=== PATIENT | male | born 1945 | race Caucasian/White ===

== ENCOUNTER 2018-04-16 21:49 | Inpatient (IN) | payer MEDICARE ==
[2018-04-16 21:51] VITALS: BMI 25.3
[2018-04-16] MEDS ORDERED: NAPROXEN PO PRN (22:54)
[2018-04-16] MEDS ORDERED: Glucagon Recombinant 1 mg Inj IM PRN (22:58)
[2018-04-16] MEDS ORDERED: Dextrose 50% SYRINGE Inj (50 ml) IV PRN (22:58)
[2018-04-16] MEDS ORDERED: Oxycodone/Acetaminophen 5/325 mg Tab PO PRN (23:01)
--- NOTE | 2018-04-16 23:03 | CP.PCM.HP ---
History of Present Illness - History of Present Illness History of Present Illness: CC: s/p admission at [facility] for new onset A fib/thyrotoxicosis; here for rehab HPI: This is a 72 y/o male with MHx significant for HTN and DM2 who was admitted to [facility] for thyrotoxicosis with new onset A fib and initially hypotension, then severe hypertension. His course was complicated, requiring a stay in ICU for mgmt. of the thyroid storm as well as severely elevated BP. He was found to be in A fib, likely 2/2 the thyroid storm and was started on anticoagulation. Patient event was transferred back to [facility] after 24 hours in ICU and further course had been uneventful. He has been stable and has problems have all been brought under control, but patient was noted to be fairly debilitated, and is being sent to TCU for further mgmt and initiation of rehab. ROS: 14 systems reviewed, negative other than HPI MHx: Hyperthyroid, A fib, DM2, HTN SHx: Allergies: Celecoxib Medications: None Family Hx: No relevant findigns Social Hx: Lives at home, no tobacco, no EtOH Surrogate Dec. Mkr.: , Shayna Present on Admission - Present on Admission Any Indicators Present on Admission: No Past Patient History - Tetanus Immunizations Tetanus Immunization: Unknown - Past Medical History & Family History Past Medical History?: Yes - Past Social History Smoking Status: Former Smoker Chewing Tobacco Use: No - CARDIAC Hx Hypercholesterolemia: Yes Hx Hypertension: Yes - PULMONARY Hx Respiratory Disorders: Yes Hx Asthma: No Hx Bronchitis: Yes Hx Chronic Obstructive Pulmonary Disease (COPD): Yes Hx Emphysema: Yes Hx Lung Cancer: No Hx Pneumonia: No Hx Pulmonary Edema: No Hx Pulmonary Embolism: No Hx Respiratory Aspiration: No Hx Respiratory Tract Infection: Yes Hx Sleep Apnea: Yes Hx Tuberculosis: No Other/Comment: quit smoking 30 years ago - NEUROLOGICAL Hx Neurological Disorder: Yes Hx Dizziness: Yes Hx Vertigo: Yes Other/Comment: lower extremity stiffness/weakness - HEENT Hx HEENT Problems: Yes Hx Cataracts: Yes (RIGHT EYE) - RENAL Hx Chronic Kidney Disease: Yes Hx Kidney Stones: Yes - ENDOCRINE/METABOLIC Hx Diabetes Mellitus Type 2: Yes - HEMATOLOGICAL/ONCOLOGICAL Hx Blood Disorders: No - INTEGUMENTARY Hx Dermatological Problems: No - MUSCULOSKELETAL/RHEUMATOLOGICAL Hx Arthritis: Yes - GASTROINTESTINAL Hx Gastrointestinal Disorders: No - GENITOURINARY/GYNECOLOGICAL Hx Genitourinary Disorders: No - PSYCHIATRIC Hx Psychophysiologic Disorder: No Hx Substance Use: No - SURGICAL HISTORY Hx Surgeries: Yes Hx Coronary Stent: Yes - ANESTHESIA Hx Anesthesia: Yes Hx Anesthesia Reactions: No Hx Malignant Hyperthermia: No Meds Allergies/Adverse Reactions: Allergies Allergy/AdvReac Type Severity Reaction Status Date / Time celecoxib [From Celebrex] Allergy RASH Verified 04/16/18 21:51 Physical Exam - Constitutional Appears: No Acute Distress - Head Exam Head Exam: ATRAUMATIC, NORMOCEPHALIC - Eye Exam Eye Exam: EOMI, PERRL - ENT Exam ENT Exam: Mucous Membranes Moist - Neck Exam Additional comments: Limited ROM 2/2 pain - Respiratory Exam Respiratory Exam: Clear to Auscultation Bilateral, NORMAL BREATHING PATTERN - Cardiovascular Exam Cardiovascular Exam: Irregular Rhythm, +S1, +S2 - GI/Abdominal Exam GI & Abdominal Exam: Normal Bowel Sounds, Soft - Extremities Exam Extremities exam: Positive for: normal inspection - Neurological Exam Neurological exam: Alert, CN II-XII Intact, Oriented x3 - Psychiatric Exam Psychiatric exam: Normal Affect, Normal Mood - Skin Skin Exam: Dry, Warm Results - Labs Result Diagrams: 04/16/18 23:42 04/16/18 23:42 Assessment & Plan (1) New onset atrial fibrillation Assessment and Plan: 72 y/o male who was admitted to [facility] for thyrotoxicosis and new onset A fib. Also noted to have elevated transaminases. 1) Hyperthyroidism -Cont methimazole -Cont propranolol 2) A fib (new onset) -- likely 2/2 hyperthyroid -Cont Eliquis -Cont propranolol 3) DM2 -Cont LA insulin -SSI -Accucheck achs -DM2 diet 4) HTN -Cont BP meds as per [facility] regimen -May need to uptitrate some BP medications 5) Weakness -PT/OT eval 6) Elevated transaminases -- unclear etiology, believed to be because of Abx per discharge summary -repeat CMP in 1 -2 days -Hold statin until transaminases normalize 7) DVT PPx -- on eliquis Status: Resolved Priority: High Onset Date: ~04/09/18 (2) Hyperthyroidism Status: Acute Priority: High Onset Date: ~04/09/18 (3) Diabetes mellitus Status: Chronic Priority: Medium (4) Weakness Status: Acute Priority: High Onset Date: ~03/13/18 (5) Hypertension Status: Chronic Priority: Medium Onset Date: ~04/09/18 (6) DVT prophylaxis Status: Acute
[2018-04-16] MEDS: Insulin Detemir 100 Units/ml Inj SC SCH (23:47)
[2018-04-16 23:50] LABS: HEMOGLOBIN 11.4 g/dL (12.0-18.0); MEAN CELL VOLUME 94.2 fl (80.0-94.0); MEAN CORPUSCULAR HEMOGLOBIN 31.7 pg (27.0-31.0); MEAN CORPUSCULAR HGB CONC 33.7 g/dL (33.0-37.0); RBC 3.59 Mil/uL (4.40-5.90); RED CELL DISTRIBUTION WIDTH 13.2 % (11.5-14.5); WHITE BLOOD COUNT 10.6 K/uL (4.8-10.8)
[2018-04-16 23:55] LABS: INR 1.1 (0.9-1.2); PARTIAL THROMBOPLASTIN TIME 40.5 Seconds (25.6-37.1); PROTHROMBIN TIME 11.8 Seconds (9.8-13.1)
[2018-04-16 23:57] LABS: BLOOD UREA NITROGEN 30 mg/dl (9-20); CALCIUM 8.8 mg/dL (8.4-10.2); GFR AFRICAN-AMERICAN > 60; GFR NON-AFRICAN AMERICAN > 60
[2018-04-17 01:26] VITALS: RESP 20
[2018-04-17] MEDS: Insulin Lispro (humaLOG) 100 Units/ml Inj SC SCH ×3 (07:18→17:02)
[2018-04-17] MEDS: Multivitamin With Minerals Tab PO SCH (09:40)
[2018-04-17] MEDS: Insulin Detemir 100 Units/ml Inj SC SCH (21:55)
[2018-04-18] MEDS: Insulin Lispro (humaLOG) 100 Units/ml Inj SC SCH ×4 (00:05→16:15)
[2018-04-18 06:53] LABS: ALB/GLOB RATIO 1.3 (1.0-2.1); ALBUMIN 3.9 g/dL (3.5-5.0); ALT/SGPT 133 U/L (21-72); AST/SGOT 68 U/L (17-59); BLOOD UREA NITROGEN 20 mg/dl (9-20); CALCIUM 9.3 mg/dL (8.4-10.2); GFR AFRICAN-AMERICAN > 60; GFR NON-AFRICAN AMERICAN > 60
[2018-04-18] MEDS: Multivitamin With Minerals Tab PO SCH (08:54)
[2018-04-18] MEDS: Insulin Detemir 100 Units/ml Inj SC SCH (21:29)
[2018-04-19] MEDS: Insulin Lispro (humaLOG) 100 Units/ml Inj SC SCH ×5 (00:29→22:55)
[2018-04-19] MEDS: Multivitamin With Minerals Tab PO SCH (08:09)
[2018-04-19] MEDS: Insulin Detemir 100 Units/ml Inj SC SCH (21:44)
[2018-04-20] MEDS: Insulin Lispro (humaLOG) 100 Units/ml Inj SC SCH ×4 (07:00→21:04)
[2018-04-20] MEDS: Multivitamin With Minerals Tab PO SCH (08:42)
[2018-04-20] MEDS: Insulin Detemir 100 Units/ml Inj SC SCH (21:03)
[2018-04-21] MEDS: Insulin Lispro (humaLOG) 100 Units/ml Inj SC SCH ×4 (06:39→21:14)
[2018-04-21] MEDS: Multivitamin With Minerals Tab PO SCH (09:16)
[2018-04-21] MEDS: Insulin Detemir 100 Units/ml Inj SC SCH (21:14)
[2018-04-22] MEDS: Insulin Lispro (humaLOG) 100 Units/ml Inj SC SCH ×2 (06:38→12:01)
[2018-04-22 07:56] VITALS: TEMP 97.8; O2SAT 98
[2018-04-22] MEDS: Multivitamin With Minerals Tab PO SCH (08:53)
[2018-04-22 09:13] VITALS: BP 156/77; PULSE 76
== END 2018-04-22 14:00 | disposition home or self-care (01) | DRG 308 ==
LOC: H.TCU 21:52
PROVIDERS: ADMIT Internal Medicine; ATTEND Internal Medicine
PROC: F07Z9FZ Gait Training/Functional Ambulation Treatment using Assistive, Adaptive, Supportive or Protective Equipment (ICD-10-PCS; principal; 2018-04-16)
PROC: F07M6FZ Therapeutic Exercise Treatment of Musculoskeletal System - Whole Body using Assistive, Adaptive, Supportive or Protective Equipment (ICD-10-PCS; 2018-04-16)
PROC: F08Z4FZ Home Management Treatment using Assistive, Adaptive, Supportive or Protective Equipment (ICD-10-PCS; 2018-04-16)
DX: I48.91 Unspecified atrial fibrillation (principal); E05.91 Thyrotoxicosis, unspecified with thyrotoxic crisis or storm; I10 Essential (primary) hypertension; E11.65 Type 2 diabetes mellitus with hyperglycemia; E78.00 Pure hypercholesterolemia, unspecified; M19.90 Unspecified osteoarthritis, unspecified site; Z95.5 Presence of coronary angioplasty implant and graft; Z87.891 Personal history of nicotine dependence; Z87.442 Personal history of urinary calculi